=== PATIENT | male | born 1950 | race Caucasian/White ===

== ENCOUNTER 2024-06-23 09:23 | Emergency (ER) | payer MEDICARE, OTHER, SELFPAY ==
[2024-06-23 09:25] VITALS: BP 186/106
--- NOTE | 2024-06-23 10:52 | ED.GENMED ---
History of Present Illness
General
Chief Complaint: Musculo-Skeletal Complaint
Source: patient
Exam Limitations: none
Time Seen by Provider: 06/23/24 10:24
Nursing documentation reviewed up to this point in time: agreed with
History of Present Illness
History of Present Illness:
Patient presents to ED secondary to persistent pain, redness, and swelling, noted between his left 1st and 2nd finger. Denies fever or chills. Denies nausea vomiting. Denies trauma. Denies open wound. Patient does state that he had ligament
repaired of the same area when he was 19 years old. Since then, he has had intermittent pain, but has never lasted this long, nor associated with redness or swelling.
Review of Systems
Review of Systems
Allergies reviewed?: Yes
Constitutional: Reports no symptoms; Denies fever
Musculoskeletal: Reports other (Hand pain with swelling)
Skin: Reports other (Hand redness)
Neurological: Reports no symptoms
Phy Exam
Physical Exam
Physical Exam:
Physical Exam
General: no apparent distress, not acutely ill. afebrile
Head: nc/at. eomi
Neck: supple. no meningeal signs.
Neuro: alert and oriented x 3. no focal neurological deficits
Skin: no rash
Psychiatric: well kept. interactive and cooperative
Extremities: mild erythema/swelling noted between left 1st and 2nd phalanx, without open wound
Course
Orders/Labs/Results
Orders:
Orders
06/23/24 09:29
CR Hand - Left Min 3 Views Urgent
Comment:
Reason For Exam: painful, no known injury
Vital Signs
Initial and Last Documented VS:
Initial Vital Signs
Temp Pulse Resp BP Pulse Ox
98.2 F 94 16 186/106 97
06/23/24 09:25 06/23/24 09:25 06/23/24 09:25 06/23/24 09:25 06/23/24 09:25
Last Documented Vital Signs
Temp Pulse Resp BP Pulse Ox
98.2 F 94 16 186/106 97
06/23/24 09:25 06/23/24 09:25 06/23/24 09:25 06/23/24 09:25 06/23/24 09:25
MDM/Problems Addressed
MDM/Problems Addressed:
X-ray report reviewed and discussed with patient. History and exam concerning for potential development of cellulitis. As such, patient will be started on empiric antibiotic, i.e. Keflex, will be splinted for comfort, referred to hand surgery for
an outpatient consultation. Patient expresses understanding at time of discharge.
Patient states that he has had previous experience with Dr. Erickson (orthopaedic surgery), with whom he will follow-up as an outpatient.
*Critical Care Note
Total Time (30-74mins, 75-104mins- exclusive of procedures): Not Applicable
ED Attending Note
-
Portions of this chart may have been created with voice recognition software.� Occasional wrong word or��sound alike� substitutions may have occurred due to the inherent limitations of voice recognition software.
Discharge Plan
Departure
Patient Disposition: Home (Routine Discharge)
Date of Disposition: 06/23/24
Time of Disposition: 10:55
Patient with high blood pressure during this ER visit?: Yes
Discharge Problem:
Cellulitis of hand
Instructions: Cellulitis (skin infection) in adults - ED discharge instructions
Prescriptions:
New
cephalexin 500 mg capsule
500 mg PO Q8H Qty: 15 0RF
Referrals:
Tonny Anderson DO [Family Provider] -
Tyler Kaplan MD [Active] -
Activity Restrictions/Additional Instructions:
As discussed, please follow-up with your primary care physician and/or referred hand surgeon for further evaluation and treatment. Please consider return to ED with worsening symptoms, i.e. fever/worsening redness/swelling. Your prescription has
been sent electronically to [facility] pharmacy in [place].
Interventions
Interventions:
*General Assessment Last Done: 06/23/24 11:29
*Neglect/Abuse Screening Last Done: 06/23/24 11:29
*ED- Fall Risk Assessment Last Done: 06/23/24 11:29
*Nursing Disposition Last Done: 06/23/24 11:29
ED-Musculoskeletal Assessment Last Done: 06/23/24 11:05
Discharge Date and Time
Discharge Date/Time: 06/23/24 11:30
Print Language: ANDORRAN
== END 2024-06-23 11:30 | disposition home or self-care (01) ==
LOC: EMR 09:23
PROVIDERS: EMERGENCY PHYSICIAN Emergency Medicine; FAMILY PHYSICIAN Family Medicine
DX: L03.114 Cellulitis of left upper limb (principal)
CPT/HCPCS: 99283; 73130